=== PATIENT | female | born 1945 | race Caucasian/White ===

== ENCOUNTER 2017-04-12 20:51 | Emergency (ER) | payer MEDICARE, OTHER ==
[2017-04-12 22:07] LABS: BASOPHIL# 0.1 X 10^3uL (0.0-0.1); BASOPHILS 1.3 % (0.0-2.0); EOSINOPHILS# 0.1 X 10^3uL (0.0-0.4); HEMATOCRIT 40.4 % (36.0-48.0); HEMOGLOBIN 13.5 g/dL (12.0-16.0); LYMPHOCYTES 18.8 % (20.0-40.0); MEAN CORPUS. HGB CONCENTRATION 33.5 g/dL (32.0-36.0); MEAN CORPUSCULAR HEMOGLOBIN 24.4 pg (29.0-35.0); MEAN PLATELET VOLUME 10.6 fL (7.4-10.4); MONOCYTES 11.5 % (2.0-10.0); MONOCYTES# 0.6 X 10^3uL (0.2-1.0); NEUTROPHILS 67.4 % (54.0-75.0); NEUTROPHILS# 3.8 X 10^3uL (2.6-6.7); PLATELET COUNT 140 X 10^3uL (130-440); RED BLOOD COUNT 5.54 X 10^6uL (4.20-6.10); RED CELL DISTRIBUTION WIDTH 13.7 % (11.5-14.5); WHITE BLOOD COUNT 5.6 X 10^3uL (3.9-10.7)
[2017-04-12 22:15] LABS: A/G RATIO 1.2; ALBUMIN 3.5 g/dL (3.5-5.0); ALKALINE PHOSPHATASE 274 U/L (38-126); ALT 378 U/L (9-52); AST 534 U/L (14-36); BILIRUBIN, TOTAL 0.8 mg/dL (0.2-1.3); BLOOD UREA NITROGEN 12 mg/dL (7-17); CALCIUM 8.9 mg/dL (8.4-10.2); CHLORIDE 104 mmol/L (98-107); CREATININE 0.9 mg/dL (0.5-1.0); EST GLOMERULAR FILTRATION RATE > 60 mL/min; GLUCOSE 178 mg/dL (70-100); MAGNESIUM 2.6 mg/dL (1.6-2.3); POTASSIUM 3.5 mmol/L (3.5-5.1); SODIUM 139 mmol/L (137-145); TOTAL PROTEIN 6.5 g/dL (6.3-8.2)
[2017-04-12 22:27] LABS: TROPONIN I < 0.012 ng/mL (0.00-0.034)
--- NOTE | 2017-04-12 22:52 | CT REPORT ---
CT ANGIOGRAM OF THE CHEST WITH INTRAVENOUS CONTRAST, PE PROTOCOL COMPARISON: None. INDICATION: [facility] [place] Shortness of breath. History of breast cancer. TECHNIQUE: Contrast enhanced chest CT performed during the injection of 100 ml of Isovue 370. Three- dimensional (MIP) reconstructions were performed. This examination was performed using automated expo sure control, adjustment of mA or kV according to patient size, and/or use of iterative reconstructio n technique. FINDINGS: Vascular: No pulmonary embolism. There is trace atherosclerotic calcification in the aortic arch. Tubes and lines: No tubes or lines identified. Thyroid: The visualized portions are normal. Mediastinum and sayda: The great vessels and airways are normal. There is no significant mediastinal or hilar lymphadenopathy. Heart and pericardium: The heart is normal in size. There is no significant coronary artery atheroscl erotic calcification. No pericardial effusion. Chest wall and breasts : Asymmetric 9 mm nodule in the left breast may be related to patient's histor y of breast cancer. There is no significant supraclavicular or axillary lymphadenopathy. Lungs and pleura: There are some small patchy airspace consolidations in the right lung base with cali ateral thickened interlobular septa. No pleural effusion. Bones: No acute fractures. Visualized upper abdomen: No acute abnormalities. IMPRESSION: 1. No pulmonary embolism. 2. Small patchy airspace consolidations in the right lung base with bilateral thickened interlobular septa. Findings may reflect pulmonary edema and/or pneumonia. Given history of breast cancer, carci nomatosis is not excluded. Consider continued imaging and clinical follow-up. 3. Asymmetric 9 mm nodule in the left breast may be related to patient's history of breast cancer. C orrelation with breast imaging as clinically warranted. COMMUNICATION: Dr. Lavinia Saravia discussed the pertinent results with Dr. Hadley at 04/12/2017 10:49 PM. Write down read back confirmed as per hospital policy. Final Electronic Signature: This report was electronically signed by Sidney Saravia MD on 04/12/2017 10:49 PM. [email or web address] /
[2017-04-12] MEDS ORDERED: LEVOFLOXACIN 250 MG TABLET ONE (23:18)
--- NOTE | 2017-04-12 23:31 | ER NURSING DOCUMENTATION ---
Nurse's Notes [facility] Name:Mackenzie Hoang Age:71 yrs Sex:Female :1945 Arrival Date:04/12/2017 Time:20:51 Bed3 Private MD: Diagnosis:Pneumonia, Unspecified;Dyspnea;Cough Presentation: 04/12 21:10 Presenting complaint: Patient states: short of breath for a few weeks with fever today. lb hx breast Ca with mets. low pulse ox. Transition of care: Home. Notified ED Physician of Dr. Hadley notified. 21:10 Acuity: AIDE 3 lb 21:10 Method Of Arrival: Walk In lb Triage Assessment: 21:14 Pertinent positives: cough. General: Appears in no apparent distress, Behavior is lb appropriate for age, pleasant. Pain: Complains of pain in right upper quadrant and left upper quadrant Pain does not radiate. Derm: Skin is intact, Skin is dry, Skin is pink, warm & dry. Historical: - Allergies: No known drug Allergies; - Home Meds: 1. Lisinopril Oral 2. amlodipine oral 3. Ativan Oral 4. exemestane oral 5. Afinitor oral - PMHx: Cancer; Hypertension; - PSHx: left breast lumpectomy; pericardial window; - Tetanus: < 10 years. - Ebola Screening: : Patient denies exposure to infectious person. Patient reports travel to an Ebola-affected area in the 21 days before illness onset. Patient reports to have traveled to [place]. - Immunization history: Flu Vaccine < 1 year. - Social history: Smoking status: Patient states was never smoker of tobacco. Patient uses alcohol weekly. Screenin:16 Infectious Disease Risk None. Abuse screen: Denies threats or abuse. Denies injuries lb from another. Nutritional screening: No deficits noted. Assessment: 21:15 See Triage Assessment done by same RN. Respiratory: Airway is patent Trachea midline lb Respiratory effort is even, unlabored, Breath sounds are clear in left posterior upper lobe and left posterior lower lobe Breath sounds are diminished in right posterior middle lobe. Derm: No deficits noted. Vital Signs: 21:15 BP 152 / 86; Pulse 91; Resp 17; Temp 99.4(O); Pulse Ox 88% on R/A; Weight 57.61 kg; lb Height 5 ft. 2 in. (157.48 cm); 23:29 BP 152 / 77; Pulse 88; Resp 18; Pulse Ox 91% on R/A; lb 21:15 Body Mass Index 23.23 (57.61 kg, 157.48 cm) ED Course: 20:52 Patient arrived in ED. jt 21:06 Jesus Hadley MD is Attending Physician. tl1 21:09 Diana Williamson is Primary Nurse. lb 21:11 Triage completed. lb 21:16 Valuables Remains with patient Patient has correct armband on for positive lb identification. Placed in gown. Bed in low position. Call light in reach. Side rails up X 1. 21:36 Accessed Port-a-Cath using accessed w/ # 20 Shin needle, sterile technique, per hospital protocol. Clean & dry. Dressing intact. Flushes easily. 22:[address] pm1 22:03 Inserted peripheral IV: 22 gauge in right hand and blood collected. lb 22:37 Patient moved back from [place]. pm1 23:15 Guillaume Read MD is Referral Physician. tl1 Administered Medications: 23:08 Drug: Levaquin 750 mg; Route: PO; 23:08 Follow up: Response: No adverse reaction 23:29 Drug: heparin Flush 100 units; Route: IVP; Site: right forearm; 23:30 Follow up: Response: No adverse reaction Outcome: 23:16 Discharge ordered by . tl1 23:29 Discharged to home ambulatory. 23:29 Condition: stable 23:29 Discharge Assessment: Patient awake, alert and oriented x 3. No cognitive and/or functional deficits noted. Patient verbalized understanding of disposition instructions. 23:29 Instructed on discharge instructions, follow up and referral plans. 23:29 IV D/Deng 23:30 Patient left the ED. 04/13 17:16 Discharge F/U Call: Unable to reach: left voicemail: [email or web address] Signatures: Christiana Ortiz pm1 Trinh Huynh mk4 Jesus Hadley MD MD tl1 Lachelle Don Lynda
--- NOTE | 2017-04-12 23:31 | ER PHYSICIAN DOCUMENTATION ---
Physician Documentation [facility] Name:Mackenzie Hoang Age:71 yrs Sex:Female :1945 Arrival Date:04/12/2017 Time:20:51 Bed3 Private MD: Jesus Martin Disposition: 04/13 15:03 Chart complete. tl1 Disposition: 04/12/17 23:16 Discharged to Home/Self Care. Impression: Pneumonia, Unspecified, Dyspnea, Cough. - Condition is Good. - Discharge Instructions: DYSPNEA, Lung Inflammation - PNEUMONIA (Adult). - Prescriptions for Levaquin 500 mg Oral Tablet - take 1 tablet by ORAL route once daily for 7 days; 7 tablet. - Medical Reconciliation form form. - Follow up: Guillaume Read MD; When: 2 - 3 days; Reason: Recheck today's complaints, Continuance of care. - Problem is new. - Symptoms are unchanged. HPI: 04/12 22:00 This 71 yrs old Female presents to ER via Walk In with complaints of Fever - tl1 CANCER PT, Shortness Of Breath. 22:00 She has a h/o metastatic breast cancer to liver, lung and bone, currently on exemestane tl1 and afinitor. She has had an increase in tumor markers over the last several weeks and currently has a workup pending. Over the last 2-3 weeks she has had slowly progressive dyspnea, worse somewhat abruptly over the last couple of days, with fever to 99.6, and a slowly progressive non productive cough. She spoke to her oncologist, and her daughter, a nurse, who insisted she come to the ED for evaluation. She has no prior h/o PE, BUT has had some bilateral L>R calf swelling. No hemoptysis. No chest pain. Recent exam reportedly showed new mild hepatomegaly. Denies h/a or other symptoms of metastatic disease.. Historical: - Allergies: No known drug Allergies; - Home Meds: 1. Lisinopril Oral 2. amlodipine oral 3. Ativan Oral 4. exemestane oral 5. Afinitor oral - PMHx: Cancer; Hypertension; - PSHx: left breast lumpectomy; pericardial window; - Tetanus: < 10 years. - Ebola Screening: : Patient denies exposure to infectious person. Patient reports travel to an Ebola-affected area in the 21 days before illness onset. Patient reports to have traveled to [place]. - Immunization history: Flu Vaccine < 1 year. - Social history: Smoking status: Patient states was never smoker of tobacco. Patient uses alcohol weekly. ROS: 22:11 Constitutional: Positive for chills, fatigue, fever, malaise, Negative for weight loss. tl1 22:11 All other systems are negative. Exam: 22:11 Constitutional: The patient appears in no acute distress, alert, awake, comfortable, tl1 non-toxic, well developed, well hydrated, well groomed, well nourished. 22:11 Head/face: Exam is negative for acute changes. 22:11 Eyes: Exam is negative for acute changes. 22:11 Neck: ROM/movement: is normal, is supple. 22:11 Cardiovascular: Rate: normal, Rhythm: regular, Heart sounds: normal, Edema: is not appreciated, JVD: is not appreciated. 22:11 Respiratory: the patient does not display signs of respiratory distress, Respirations: normal, Breath sounds: are normal. 22:11 Abdomen/GI: Inspection: abdomen appears normal, Bowel sounds: normal, Palpation: soft, mild abdominal tenderness, in the right upper quadrant, Liver: is firm, is enlarged, palpable 3 cm(s) below rib margin, tenderness, that is mild. 22:11 Back: CVA tenderness, is absent. 22:11 Musculoskeletal/extremity: Exam is negative for acute changes. 22:11 Skin: Exam negative for acute changes. 22:11 Neuro: Exam negative for acute changes. Vital Signs: 21:15 BP 152 / 86; Pulse 91; Resp 17; Temp 99.4(O); Pulse Ox 88% on R/A; Weight 57.61 kg; lb Height 5 ft. 2 in. (157.48 cm); 23:29 BP 152 / 77; Pulse 88; Resp 18; Pulse Ox 91% on R/A; lb 21:15 Body Mass Index 23.23 (57.61 kg, 157.48 cm) lb MDM: 21:06 Patient medically screened. tl1 23:00 Differential diagnosis: viral Infection, bacterial infection, URI, bronchitis, tl1 pneumonia CHF, PE. Data reviewed: vital signs, nurses notes, old medical records, lab test result(s), radiologic studies, plain films. Test interpretation: by ED physician or midlevel provider: plain radiologic studies. Counseling: I had a detailed discussion with the patient and/or guardian regarding: the historical points, exam findings, and any diagnostic results supporting the discharge/admit diagnosis, lab results, radiology results, the need for outpatient follow up, for a recheck, to return to the emergency department if symptoms worsen or persist or if there are any questions or concerns that arise at home. 23:00 Data reviewed: and as a result, I will discharge patient. Response to treatment: There tl1 is no appreciated change of the patient's symptoms at this time. ED course: Hemodynamically and symptomatically stable, Serial re-evaluations showed no deterioration while in the ED.. 04/12 22:16 Order name: COMPREHENSIVE METABOLIC PANEL; Complete Time: 22:51 EDMS 04/12 22:49 Interpretation: Normal Except: GLUCOSE 178; ALT 378; ALKALINE PHOSPHATASE 274; AST 534. [facility] 04/12 22:16 Order name: MAGNESIUM; Complete Time: 22:51 EDMS 04/12 22:49 Interpretation: Abnormal: MAGNESIUM 2.6. [facility] 04/12 22:17 Order name: CBC AUTO DIF, MDIF/RMOR IF IND; Complete Time: 22:51 EDMS 04/12 22:50 Interpretation: WHITE BLOOD COUNT 5.6; HEMOGLOBIN 13.5; HEMATOCRIT 40.4; PLATELET COUNT 1 140. 04/12 22:28 Order name: BNP,NT-PRO; Complete Time: 22:51 EDMS 04/12 22:50 Interpretation: Normal: BNP,NT-PRO 76. 1 04/12 22:28 Order name: TROPONIN I; Complete Time: 22:51 EDMS 04/12 22:50 Interpretation: Normal: TROPONIN I < 0.012. 1 04/12 22:31 Order name: DDIMER; Complete Time: 22:51 EDMS 04/12 22:50 Interpretation: Abnormal: DDIMER 678. 1 04/12 22:54 Order name: CAT SCAN; CHEST ANGIO [id number]; Complete Time: 15:07 EDMS 04/13 15:07 Interpretation: small patchy airspace consolidation in rightlung base. most likely tl1 infection vs carcinomatosis., small patchy airspace consolidation in rightlung base. most likely infection vs carcinomatosis. See attached radiologist report. Dispensed Medications: 23:08 Drug: Levaquin 750 mg; Route: PO; lb 23:08 Follow up: Response: No adverse reaction lb 23:29 Drug: heparin Flush 100 units; Route: IVP; Site: right forearm; lb 23:30 Follow up: Response: No adverse reaction lb Signatures: Jesus Hadley MD MD tl1 Diana Williamson
--- NOTE | 2017-04-15 07:15 | RADIOLOGY REPORT ---
Two views of the chest are compared with prior films dated 04/02/2016. Right sided PICC line is noted with its tip approximately 3 cm below the filipe. The heart and vessels are unremarkable. Stable, small, benign granuloma is noted in the left upper lung field. There has been interval development of mixed hazy infiltrates throughout the right lung field, most prominent at the right lung base. No fluid or pneumothorax is seen. IMPRESSION: Interval development of hazy infiltrates throughout the right lung field. Please see CT scan report of the same date. [facility]
== END 2017-04-12 23:31 | disposition home or self-care (01) ==
LOC: ER 20:51
DX: J18.9 Pneumonia, unspecified organism (principal); R06.00 Dyspnea, unspecified; C50.919 Malignant neoplasm of unspecified site of unspecified female breast; C78.7 Secondary malignant neoplasm of liver and intrahepatic bile duct; C78.00 Secondary malignant neoplasm of unspecified lung; C79.51 Secondary malignant neoplasm of bone; R53.83 Other fatigue; R53.81 Other malaise; I10 Essential (primary) hypertension; Z79.899 Other long term (current) drug therapy
CPT/HCPCS: 71020; 71275; 80053; 83735; 83880; 84484; 85025; 85379; 99284; J1642